=== PATIENT | female | born 1950 | race Caucasian/White ===

== ENCOUNTER 2023-06-21 10:41 | Emergency (ER) | payer MEDICARE ==
[~2023-06-21] VITALS: Ht 167.6 cm; Wt 56.7 kg
[~2023-06-21 10:41] MED LIST: ALBU3IS INH; ALBU90OI61 INH; BUDE6HFA INH; CALCAVITDA PO; CARV6.25 PO; ERGO50000 PO; EZET10 PO; HYDACE5 PO; INCRUSE ELPT INH 62.; IPRAOI INH; LORA10ER PO; METOPROLOL SUCC25 MG PO; PANT40 PO; SALM50IP IH; TIOT18 IH; Ventolin/Prove6.7 GM INH; [UNRECOGNIZED DRUG - OTHER]
[2023-06-21 11:49] LABS: BASOPHILS ABSOLUTE AUTO 0.01 K/mm3 (0.00-0.23); BASOPHILS PERCENT AUTO 0 % (0-2); EOSINOPHILS PERCENT AUTO 0 % (0-6); Hematocrit 33.9 % (33.0-51.0); Hemoglobin 10.7 g/dL (11.5-16.0); IMMATURE GRAN ABSOLUTE AUTO 0.04 K/mm3 (0.00-0.10); IMMATURE GRAN PERCENT AUTO 0 % (0-1); LYMPHOCYTES ABSOLUTE AUTO 0.72 K/mm3 (0.84-5.20); LYMPHOCYTES PERCENT AUTO 6 % (21-46); MONOCYTES ABSOLUTE AUTO 0.86 K/mm3 (0.16-1.47); MONOCYTES PERCENT AUTO 7 % (4-13); Mean Corpuscular HGB 30.5 pg (26.0-34.0); Mean Corpuscular HGB Conc 31.6 g/dL (31.5-36.5); Mean Corpuscular Volume 97 fL (80-100); Mean Platelet Volume 10.5 fL (9.1-12.4); NEUTROPHILS ABSOLUTE AUTO 10.38 K/mm3 (1.96-9.15); NEUTROPHILS PERCENT AUTO 86 % (41-73); Platelet Count 185 K/mm3 (150-400); RDW Coefficient Variation 13.2 % (11.7-14.2); RDW Standard Deviation 47.3 fL (35.1-46.3); Red Blood Cell Count 3.51 M/mm3 (3.80-5.20); White Blood Cell Count 12.01 K/mm3 (4.00-11.30)
[2023-06-21 12:03] LABS: Albumin, Blood 2.9 g/dL (3.4-5.0); Albumin/Globulin Ratio 0.9 (0.8-1.8); Bilirubin, Total 0.6 mg/dL (0.1-1.0); Bun/Creatinine Ratio 29.3 (12.0-20.0); Calcium, Blood 8.9 mg/dL (8.5-10.1); Creatinine, Blood 0.27 mg/dL (0.40-1.00); Globulin, Blood 3.3 g/dL (2.2-4.0); Potassium, Blood 4.7 mmol/L (3.5-5.5); Total Protein, Blood 6.2 g/dL (6.4-8.2)
[2023-06-21 13:02] LABS: Source, Urine Clean Catch
[2023-06-21 13:16] LABS: Appearance, Urine Hazy (Clear); Bilirubin, Urine Neg (Neg); Blood, Urine 2+ (Neg); Color, Urine Yellow (P-Yellow); Glucose Qualitative, Urine Neg (Neg); Ketones, Urine 4+ (Neg); Leukocyte Esterase, Urine 1+ (Neg); Nitrite, Urine Neg (Neg); Protein, Urine 2+ (Neg); Specific Gravity, Urine 1.025 (1.003-1.022); Urobilinogen, Urine 1+ (Normal)
[2023-06-21 13:19] LABS: Influenza A, PCR NEGATIVE (NEGATIVE); Influenza B, PCR NEGATIVE (NEGATIVE); Resp Syncytial Virus, PCR NEGATIVE (NEGATIVE); SARS-Cov-2 (COVID-19) PCR, MMC NEGATIVE (NEGATIVE)
[2023-06-21 13:28] LABS: Bacteria Few /hpf; Mucus Mod (0-Heavy); Squamous Epithelial Cells Mod /hpf (Few); Transitional Epithelial Cells Rare /hpf (0-Rare)
[2023-06-21 13:29] LABS: Hyaline Casts 0-2 /lpf (0-2)
[2023-06-21] MEDS ORDERED: Prednisone20 MG PO (14:40)
[2023-06-21 16:30] VITALS: BP 125/71
== END 2023-06-21 16:45 | disposition home or self-care (01) ==
LOC: ER 10:41
PROVIDERS: Emergency Medicine
DX: J44.1 Chronic obstructive pulmonary disease with (acute) exacerbation (principal); S93.601A Unspecified sprain of right foot, initial encounter; Z20.822 Contact with and (suspected) exposure to COVID-19; Z99.81 Dependence on supplemental oxygen; F17.200 Nicotine dependence, unspecified, uncomplicated; E78.5 Hyperlipidemia, unspecified; K21.9 Gastro-esophageal reflux disease without esophagitis; M19.90 Unspecified osteoarthritis, unspecified site; M81.0 Age-related osteoporosis without current pathological fracture; E55.9 Vitamin D deficiency, unspecified; Z88.1 Allergy status to other antibiotic agents; Z79.899 Other long term (current) drug therapy; Z88.2 Allergy status to sulfonamides; W19.XXXA Unspecified fall, initial encounter
CPT/HCPCS: 0241U; 71046; 73030; 73630; 80053; 81001; 83880; 84484; 85025; 93005; 93010; 94640; 94664; 99285-25; J7030; J7512

== ENCOUNTER 2023-06-23 05:43 | Inpatient (IN) | payer MEDICARE ==
[~2023-06-23] VITALS: Ht 167.6 cm; Wt 54.4 kg
[~2023-06-23 05:43] MED LIST changes: +Prednisone20 MG PO
[2023-06-23 06:59] LABS: BASOPHILS ABSOLUTE AUTO 0.01 K/mm3 (0.00-0.23); BASOPHILS PERCENT AUTO 0 % (0-2); EOSINOPHILS ABSOLUTE AUTO 0.04 K/mm3 (0.00-0.68); EOSINOPHILS PERCENT AUTO 0 % (0-6); Hematocrit 31.3 % (33.0-51.0); Hemoglobin 9.7 g/dL (11.5-16.0); IMMATURE GRAN ABSOLUTE AUTO 0.06 K/mm3 (0.00-0.10); IMMATURE GRAN PERCENT AUTO 1 % (0-1); LYMPHOCYTES ABSOLUTE AUTO 0.97 K/mm3 (0.84-5.20); LYMPHOCYTES PERCENT AUTO 8 % (21-46); MONOCYTES ABSOLUTE AUTO 1.36 K/mm3 (0.16-1.47); MONOCYTES PERCENT AUTO 12 % (4-13); Mean Corpuscular HGB 30.3 pg (26.0-34.0); Mean Corpuscular Volume 98 fL (80-100); Mean Platelet Volume 10.9 fL (9.1-12.4); NEUTROPHILS ABSOLUTE AUTO 9.27 K/mm3 (1.96-9.15); NEUTROPHILS PERCENT AUTO 79 % (41-73); Platelet Count 175 K/mm3 (150-400); RDW Coefficient Variation 13.2 % (11.7-14.2); RDW Standard Deviation 47.2 fL (35.1-46.3); White Blood Cell Count 11.71 K/mm3 (4.00-11.30)
[2023-06-23 07:08] LABS: Albumin, Blood 2.8 g/dL (3.4-5.0); Albumin/Globulin Ratio 0.9 (0.8-1.8); Bilirubin, Total 0.6 mg/dL (0.1-1.0); Bun/Creatinine Ratio 43.3 (12.0-20.0); Calcium, Blood 8.7 mg/dL (8.5-10.1); Creatinine, Blood 0.23 mg/dL (0.40-1.00); Globulin, Blood 3.2 g/dL (2.2-4.0); Potassium, Blood 5.2 mmol/L (3.5-5.5)
[2023-06-23 10:28] LABS: Adenovirus Not Detected (NOT DETECT); Coronavirus 229E Not Detected (NOT DETECT)
[2023-06-23 10:29] LABS: Bordetella pertussis Not Detected (NOT DETECT); Chlamydophila pneumoniae Not Detected (NOT DETECT); Coronavirus HKU1 Not Detected (NOT DETECT); Coronavirus NL63 Not Detected (NOT DETECT); Coronavirus OC43 Not Detected (NOT DETECT); Human Metapneumovirus Not Detected (NOT DETECT); Human Rhinovirus/Enterovirus Not Detected (NOT DETECT); Influenza A/2009-H1 Not Detected (NOT DETECT); Influenza A/H1 Not Detected (NOT DETECT); Influenza A/H3 Not Detected (NOT DETECT); Influenza B Not Detected (NOT DETECT); Mycoplasma pneumoniae Not Detected (NOT DETECT); Parainfluenza Virus 1 Not Detected (NOT DETECT); Parainfluenza Virus 2 Not Detected (NOT DETECT); Parainfluenza Virus 3 Not Detected (NOT DETECT); Parainfluenza Virus 4 Not Detected (NOT DETECT); Respiratory Syncytial Virus Not Detected (NOT DETECT); SARS-Cov-2 (COVID-19), BioFire Not Detected (NOT DETECT)
[2023-06-23 15:40] VITALS: BP 116/67
[2023-06-23 15:49] VITALS: BP 100/72
[2023-06-23 15:56] VITALS: BP 154/76
--- NOTE | 2023-06-23 15:57 | NUR ---
STATUS CHANGE: Patient arrived to PCU room 18 from ER. While admitting pt she was a/o x and talking to RNs. Once pt was repositioned she reached up with right hand almost like she was hallucinating and stopped responding. Respirations became agonal. RT was called for BIPAP; oxymizer turned up to 10L and NRB placed. Dr Henning called to bedside. Palliative care called to bedside.
[2023-06-23 15:58] VITALS: BP 146/81
[2023-06-23 16:00] VITALS: BP 146/68
--- NOTE | 2023-06-23 16:04 | NUR ---
PALLIATIVE/FAMILY: Family at bedside with palliative care. Pt's daughter just arrived and requests that team stop with care. BIPAP removed.
[2023-06-23 16:05] LABS: pH Blood Arterial 6.97 (7.35-7.45)
[2023-06-23 16:06] LABS: PCO2 Arterial > 105 mmHg (35-45); PO2 Arterial 49.8 mmHg (80-100)
--- NOTE | 2023-06-23 16:16 | NUR ---
TIME OF : Pt is without pulse or respiratory effort at this time. TOD called at 1616.
--- NOTE | 2023-06-23 16:58 | NUR ---
Upon responding to a call-back, I visited with patient's family, just minutes after the patient . Family is grieving appropriately and is tearful. I conduct a life review of patient, and provide grief support, and prayer. Family voice great appreciation and showed signs of being comforted.
--- NOTE | 2023-06-23 18:07 | NUR ---
SHIFT SUMMARY: On initial assessment, pt cachectic and A/O to person, place, time, and situation. She was slow to respond to questions, but attempted to assist with repositioning. Skin was pale, flakey, and fragile. Wounds found to coccyx and rosemary prominence of back; see photos in chart. Ecchymosis to right ankle and foot. Niece at bedside to answer questions. Shortly after repositioning pt and placing egg crate below pt, she reached out with right arm and stopped responding verbally. Chest rise became minimal and irregular. RT and Dr Henning called; ABG and CT head ordered. Pt continued to decompensate. Rapid reponse was called and Dr Henning called to come to bedside. At this time pt's niece was on the phone with pt's daughter. Staff were informed that mask was OK but no intubation. BIPAP placed. Palliative care to bedside. Pt's daughter arrived and requested that we withdrawal care and keep patient comfortable. Dr Henning to bedside.
--- NOTE | 2023-06-23 18:45 | NUR ---
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 [facility] [employer] called.
--- NOTE | 2023-06-23 20:06 | NUR ---
PATIENT HAS BEEN PICKED UP BY [facility] AT [facility] 1944 [address] [employer], PAPERWORK GIVEN AND SIGNED. INFORMED OF DONOR STATUS, SAYS OFFICE IS AWARE TO HIS KNOWLEDGE BUT WILL PASS ON INFORMATION. PRIOR TO SHIFT AVIAN KEEPER AND PRIMARY NURSE DID PAPERWORK PRIOR TO THIS RN ARRIVAL.
== END 2023-06-23 19:44 | DRG 193 ==
LOC: ER 05:43 → ERHOLD 10:25 → PCU 15:28
PROVIDERS: Emergency Medicine; ADMIT Internal Medicine
PROC: 4A033R1 Measurement of Arterial Saturation, Peripheral, Percutaneous Approach (ICD-10-PCS; principal; 2023-06-23)
DX: J18.9 Pneumonia, unspecified organism (principal); J96.21 Acute and chronic respiratory failure with hypoxia; J44.1 Chronic obstructive pulmonary disease with (acute) exacerbation; J44.0 Chronic obstructive pulmonary disease with (acute) lower respiratory infection; Z51.5 Encounter for palliative care; Z66 Do not resuscitate; E78.5 Hyperlipidemia, unspecified; F41.9 Anxiety disorder, unspecified; K21.9 Gastro-esophageal reflux disease without esophagitis; M19.90 Unspecified osteoarthritis, unspecified site; M81.0 Age-related osteoporosis without current pathological fracture; G89.29 Other chronic pain; I10 Essential (primary) hypertension; M54.50 Low back pain, unspecified; F17.210 Nicotine dependence, cigarettes, uncomplicated; Z99.81 Dependence on supplemental oxygen; Z79.52 Long term (current) use of systemic steroids; Z11.52 Encounter for screening for COVID-19; S93.601A Unspecified sprain of right foot, initial encounter; Z20.822 Contact with and (suspected) exposure to COVID-19; F17.200 Nicotine dependence, unspecified, uncomplicated; E55.9 Vitamin D deficiency, unspecified; Z88.1 Allergy status to other antibiotic agents; Z79.899 Other long term (current) drug therapy; Z88.2 Allergy status to sulfonamides; W19.XXXA Unspecified fall, initial encounter
CPT/HCPCS: 0202U; 0241U; 36415; 36600; 71046; 73030; 73630; 80053; 81001; 82803; 83605; 83880; 84484; 85025; 87040; 93005; 93010; 94640; 94644; 94660; 94664; 96361; 96365; 96366; 96375; 99285-25; A9270; J0692; J2270; J2930; J7030; J7512